=== PATIENT | male | born 1935 | race Caucasian/White ===

== ENCOUNTER 2018-06-26 17:23 | Observation (INO) ==
[2018-06-26] MEDS ORDERED: 0.9 % SODIUM CHLORIDE 1,000 ML IV ONE (17:40)
[2018-06-26 18:22] LABS: Mean Cell Volume 91.3 fL (80.0-100.0); Mean Corpuscular HGB Conc 32.8 g/dL (31.0-36.0); Platelet Count 161 K/mcL (140-440); RBC 4.16 M/mcL (4.50-5.90); Red Cell Distribution Width 19.3 % (11.5-14.5)
[2018-06-26 18:40] LABS: ALT/SGPT 19 U/l (0-40); Albumin 4.3 gm/dL (3.2-5.2); Albumin/Globulin Ratio 1.3 (1.0-2.3); Alkaline Phosphatase 124 U/L (39-117); Blood Urea Nitrogen 15 mg/dl (8-23)
[2018-06-26 18:51] LABS: Anisocytosis 1+ (NONE SEEN); Band Neutrophils % 4 % (0-10); Lymphocytes % 22 % (15-49); Monocytes % (Manual) 10 % (1-12); Ovalocytes 1+ (NONE SEEN); Platelet Estimate NORMAL (NORMAL); RBC Morphology ABNORM (NORMAL); Segmented Neutrophils % 64 % (38-78)
--- NOTE | 2018-06-26 19:10 | XRay Report ---
HISTORY: Shortness of breath and weakness FINDINGS: The heart is moderately enlarged and has increased in size since 02/09/18. In Addition there is congestive heart failure with pulmonary edema. A small left-sided pleural effusion is present. Lung volumes are normal and there is no lobar consolidation. Multiple sternal wires are present. IMPRESSION: Congestive heart failure Interpreted and Authenticated by: Jose Solorio 06/26/18
--- NOTE | 2018-06-26 20:21 | Emergency Department Note ---
Weakness HPI - General Chief complaint: Weakness Stated complaint: weak Time Seen by Provider: 06/26/18 17:34 Source: patient, family Mode of arrival: ambulatory Limitations: no limitations - History of Present Illness HPI Narrative: 83-year-old male presents with increasing weakness over the last 3 days, no appetite, and short of breath with any exertion. He did have chemo yesterday morning. States he gets extremely short of breath with any exertion and is just getting weaker and weaker. States he has not been eating or drinking because he has absolutely no appetite. States he has a chronic cough for many years and no new cough. No sore throat or ear pain. No fever or chills. No abdominal pain. No dysuria or frequency. - Related Data Home Medications Medication Instructions Recorded Confirmed Ranitidine HCl [Heartburn Relief] 75 mg PO DAILY PRN 04/08/16 06/26/18 Tadalafil [Cialis] 5 mg PO DAILY 04/08/16 06/26/18 Tamsulosin HCl [Flomax] 0.4 mg PO HS 04/08/16 06/26/18 metFORMIN HCL [Glucophage] 500 mg PO BID 04/08/16 06/26/18 Previous Rx's Medication Instructions Recorded Accu-Chek 1 each FS ACHS strip 04/10/16 Carvedilol [Coreg] 6.25 mg PO BIDCC #60 tablet 04/10/16 Finasteride [Proscar] 5 mg PO DAILY #30 tablet 04/10/16 Spironolactone [Aldactone] 12.5 mg PO BIDD #30 tablet 04/10/16 Apixaban [Eliquis] 5 mg PO BID #60 tab 08/12/17 Furosemide [Lasix] 20 mg PO QDAY #30 tab 08/12/17 Potassium Chloride 10 meq PO BID #60 capsule.er 08/12/17 HYDROcodone/APAP 5/325MG [[place] 1 tab PO Q4HP PRN #10 tab 12/21/17 5-325Mg] Allergies Allergy/AdvReac Type Severity Reaction Status Date / Time No Known Drug Allergies Allergy Unverified 12/21/17 06:22 Review of Systems All systems ED: reviewed and negative except as stated. Past Medical History - Past Medical History Medical history: Reports: coronary artery disease, DM, hypertension, TIA, other (BPH, prostate cancer, bone cancer) Surgical history ED: Reports: coronary bypass (CABG) - Social History smoking status: Former smoker Alcohol use: Reports: Heavy (in past has quit) Drug use: Reports: none Physical Exam Limitations: no limitations General appearance: alert, other (Speaks 4-5 words at a time with some mild shortness of breath.) Head: atraumatic, normocephalic, normal inspection Eye: Present: normal appearance. Absent: conjunctival injection ENT: normal exam, normal oropharynx, mucous membranes moist, TM's normal bilaterally, normal external ear exam Neck: Present: normal inspection, trachea midline. Absent: tenderness, lymphadenopathy Chest: Present: symmetric chest wall rise Respiratory: Present: other (Lung sounds diminished at the bases bilaterally). Absent: respiratory distress, rales/crackles, accessory muscle use Cardiovascular: Present: tachycardia, normal heart sounds Abdominal: Present: soft, normal bowel sounds. Absent: distention, tenderness, guarding Extremities: Present: normal inspection, normal capillary refill. Absent: pedal edema Neurological: Present: alert, oriented X3 Psychiatric: Present: normal affect, normal mood Skin: Present: warm, dry, intact, normal color. Absent: rash, cyanosis, diaphoresis, erythema Course Course Narrative: At 2049 I did speak with the hospitalist, Dr. Vazquez, who agrees to admit this patient Vital Signs Temperature 97.4 F 06/26/18 17:32 Pulse Rate 125 H 06/26/18 17:32 Respiratory Rate 22 06/26/18 17:32 Blood Pressure 126/78 06/26/18 17:32 Temperature 97.4 F 06/26/18 17:32 Pulse Rate 125 H 06/26/18 17:32 Respiratory Rate 24 H 06/26/18 20:32 Blood Pressure 126/82 06/26/18 20:31 Weakness - Lab Data Lab results reviewed: Yes I reviewed the patient's lab results. Result diagrams: 06/26/18 17:42 06/26/18 17:42 Lab Results 06/26/18 06/26/18 06/26/18 Range/Units 17:42 17:42 17:42 WBC 3.2 L (4.5-11.0) K/mcL RBC 4.16 L (4.50-5.90) M/mcL Hgb 12.4 L (13.5-16.5) g/dL Hct 38.0 L (41.0-55.0) % MCV 91.3 (80.0-100.0) fL MCH 29.9 (26.0-34.0) pg MCHC 32.8 (31.0-36.0) g/dL RDW 19.3 H (11.5-14.5) % Plt Count 161 (140-440) K/mcL MPV 9.0 (7.4-10.4) fL Total Counted 100 Seg Neutrophils % 64 (38-78) % Band Neutrophils % 4 (0-10) % Lymphocytes % 22 (15-49) % Monocytes % (Manual) 10 (1-12) % Platelet Estimate Normal (NORMAL) RBC Morphology Abnorm A (NORMAL) Anisocytosis 1+ A (NONE SEEN) Ovalocytes 1+ A (NONE SEEN) Sodium 134 (133-145) mmol/L Potassium 4.5 (3.3-5.1) mmol/L Chloride 96 (96-108) mmol/L Carbon Dioxide 21 L (22-30) mmol/L Anion Gap 17.0 H (8-16) BUN 15 (8-23) mg/dl Creatinine 0.9 (0.7-1.2) mg/dl GFR Calculation 79 Glucose 180 H (70-105) mg/dL Calcium 9.2 (8.6-10.4) mg/dl Total Bilirubin 1.4 H (0.0-1.0) mg/dL AST 22 (0-37) U/l ALT 19 (0-40) U/l Alkaline Phosphatase 124 H (39-117) U/L Troponin T (0-0.03) ng/ml NT-Pro-B Natriuret Pep 14344.0 H (0-450) pg/ml Total Protein 7.5 (5.9-8.4) gm/dL Albumin 4.3 (3.2-5.2) gm/dL Globulin 3.2 (2.2-3.7) gm/dL Albumin/Globulin Ratio 1.3 (1.0-2.3) 06/26/18 Range/Units 17:46 WBC (4.5-11.0) K/mcL RBC (4.50-5.90) M/mcL Hgb (13.5-16.5) g/dL Hct (41.0-55.0) % MCV (80.0-100.0) fL MCH (26.0-34.0) pg MCHC (31.0-36.0) g/dL RDW (11.5-14.5) % Plt Count (140-440) K/mcL MPV (7.4-10.4) fL Total Counted Seg Neutrophils % (38-78) % Band Neutrophils % (0-10) % Lymphocytes % (15-49) % Monocytes % (Manual) (1-12) % Platelet Estimate (NORMAL) RBC Morphology (NORMAL) Anisocytosis (NONE SEEN) Ovalocytes (NONE SEEN) Sodium (133-145) mmol/L Potassium (3.3-5.1) mmol/L Chloride (96-108) mmol/L Carbon Dioxide (22-30) mmol/L Anion Gap (8-16) BUN (8-23) mg/dl Creatinine (0.7-1.2) mg/dl GFR Calculation Glucose (70-105) mg/dL Calcium (8.6-10.4) mg/dl Total Bilirubin (0.0-1.0) mg/dL AST (0-37) U/l ALT (0-40) U/l Alkaline Phosphatase (39-117) U/L Troponin T < 0.01 (0-0.03) ng/ml NT-Pro-B Natriuret Pep (0-450) pg/ml Total Protein (5.9-8.4) gm/dL Albumin (3.2-5.2) gm/dL Globulin (2.2-3.7) gm/dL Albumin/Globulin Ratio (1.0-2.3) - Radiology Data Radiology results reviewed: Yes I reviewed the patient's radiology results. Disposition Pt seen by [employer] [employer]/PA only: Yes Clinical Impression: SOB (shortness of breath), CHF (congestive heart failure), Generalized weakness, Prostate cancer Disposition: Xfer As Inpt ([facility]) Condition: Fair Referrals: Gonzalo Kwok MD [Primary Care Provider] - Time of Disposition: 20:54
[2018-06-26] MEDS ORDERED: TAMSULOSIN 0.4 MG CAPSULE PO SCH (21:00)
[2018-06-26] MEDS ORDERED: FUROSEMIDE 40 MG/4 ML VIAL IV ONE ×2 (21:28→22:11)
--- NOTE | 2018-06-26 21:37 | Internal Med History&Physical ---
Medical - H&P: HPI Patient information: Note initiated : 06/26/18 at 9:30 pm Service Date, if different from initiated Date: [] Patient: Marcos Zavala 83 y/o M admitted on for weak. Chief Complaint: [] History of present illness: Mr. Zavala is a 83 year old M with history of congestive heart failure, coronary artery disease status post bypass surgery metastatic prostate cancer on chemotherapy presents to the hospital for evaluation of weakness fatigue for the last 3 days. The patient is being followed by oncology at [facility]. Dr Diallo. The patient got his chemotherapy injection of Xofigo 3 days ago, looking at the note it seemed that this was a third dose. Since then the patient has not been feeling well, he notes that he is very tired fatigued and not wanting to get out of bed. He has been in the bed sleeping approximately 20 hours a day. The patient is also has shortness of breath on exertion, and gets tired with minimal activity. He denies any other acute complaints or concerns. He denies any bleeding from any site, any black stools denies any chest pain palpitations di zziness nausea vomiting abdominal pain. He admits to having poor appetite does not feel like eating or drinking much. He presented to his nurse I believe a chemo nurse with the symptoms and he was s ent here to the emergency room because he had elevated heart rate. The patient on presentation was afebrile, tachycardic with a heart rate of 125, normal blood pressure saturating more than 90% on room air. Labs showed a WBC count of 3.2, hemoglobin 12.4 platelets 161, sodium 134 potassium 4.5 bicarbonate 21 creatinine 0.9 glucose 118 troponin 0 0.01, BNP elevated 11,097. Chest x-ray shows CHF small left effusion and cardiomegaly. EKG shows low voltage in the limb leads, atrial fibrillation, QS pattern in V1 V2, nonspecific ST wave changes in the lateral leads The patient has had a cardiac bypass done more than 10 years ago, I have seen the nuclear stress test done for this gentleman last year which showed poor ejection fraction LVEF of 36%, he had infarction on the basilar lateral and i nferior region. He denies any cardiac catheter stenting done afterwards. The patient has a history of prostate cancer, treated by Dr. Diallo at [facility], seems he is presently being treated with Eligard, bicalutamide, and Xgeva. The patient also has been started on Xofigo. During my evaluation, patient was sitting comfortably in the bed, his heart rate was between 90 -110, saturating more than 95% on room air, not tachypneic. He had his family by his bedside, and he was eating a sandwich. He received 1 L saline in the ER, no lasix. All systems: reviewed and no additional remarkable complaints except as stated (as per HPI rest neg) Medical - H&P: PMH Medical history: Medical History TIA (transient ischemic attack) (Acute) HTN (hypertension) (Chronic) DM type 2 (diabetes mellitus, type 2) (Chronic) CAD (coronary artery disease), [place] coronary artery (Acute) Emphysema of lung (Chronic) BPH (benign prostatic hyperplasia) (Chronic) metastatic prostate cancer Family history: reviewed and not pertinent Medical - H&P: Meds Home Medications Medication Instructions Recorded Confirmed Type Ranitidine HCl [Heartburn Relief] 75 mg PO DAILY PRN 04/08/16 06/26/18 History Tadalafil [Cialis] 5 mg PO DAILY 04/08/16 06/26/18 History Tamsulosin HCl [Flomax] 0.4 mg PO HS 04/08/16 06/26/18 History metFORMIN HCL [Glucophage] 500 mg PO BID 04/08/16 06/26/18 History Accu-Chek 1 each FS ACHS strip 04/10/16 06/26/18 Rx Carvedilol [Coreg] 6.25 mg PO BIDCC #60 tablet 04/10/16 06/26/18 Rx Finasteride [Proscar] 5 mg PO DAILY #30 tablet 04/10/16 06/26/18 Rx Spironolactone [Aldactone] 12.5 mg PO BIDD #30 tablet 04/10/16 06/26/18 Rx Apixaban [Eliquis] 5 mg PO BID #60 tab 08/12/17 06/26/18 Rx Furosemide [Lasix] 20 mg PO QDAY #30 tab 08/12/17 06/26/18 Rx Potassium Chloride 10 meq PO BID #60 capsule.er 08/12/17 06/26/18 Rx HYDROcodone/APAP 5/325MG [[place] 1 tab PO Q4HP PRN #10 tab 12/21/17 Rx 5-325Mg] Allergies Allergy/AdvReac Type Severity Reaction Status Date / Time No Known Drug Allergies Allergy Unverified 12/21/17 06:22 Medical - H&P: Exam - Constitutional Vitals: Temp Pulse Resp BP 97.4 F 125 H 28 H 115/81 06/26/18 17:32 06/26/18 17:32 06/26/18 21:01 06/26/18 21:01 Exam: GENERAL: The patient is a well-developed, well-nourished in no apparent distress. Is alert and oriented x3. VITAL SIGNS: Reviewed and as noted elsewhere. HEENT: Head is normocephalic and atraumatic. Extraocular muscles are intact. Pupils are equal, round, and reactive to light. Nares appeared normal. Mouth appears any without lesions. Mucous membranes are moist. NECK: Normal to inspection, Supple, No lymphadenopathy or thyromegaly. LUNGS: Air entry equal on both sides, no wheezing, crackles or rhonchi noted. No accessory muscles of respiration HEART: Regular rate and rhythm normal, S1 and S2 heard, no Gallop, S3 or Rub Noted, No Gross murmur heard. ABDOMEN: Soft, nontender, and nondistended. Positive bowel sounds. No hepatosp lenomegaly was noted. EXTREMITIES: No cyanosis, clubbing, rash, lesions or edema. NEUROLOGIC: Cranial nerves II through XII are grossly intact. Motor and Sensory System Grossly Intact PSYCHIATRIC: Normal affect, Normal Mood. Appropriate Behavior. SKIN: No ulceration or wounds noted, No jaundice, No rash noted. Medical - H&P: Reslt - Labs CBC & Chem 7: 06/26/18 17:42 06/26/18 17:42 Labs: Short CBC 06/26/18 Range/Units 17:42 WBC 3.2 L (4.5-11.0) K/mcL Hgb 12.4 L (13.5-16.5) g/dL Hct 38.0 L (41.0-55.0) % Plt Count 161 (140-440) K/mcL BMP 06/26/18 17:42 Sodium 134 Potassium 4.5 Chloride 96 Carbon Dioxide 21 L BUN 15 Creatinine 0.9 Glucose 180 H Calcium 9.2 Cardiac Enzymes 06/26/18 Range/Units 17:46 Troponin T < 0.01 (0-0.03) ng/ml Liver Function 06/26/18 Range/Units 17:42 Total Bilirubin 1.4 H (0.0-1.0) mg/dL AST 22 (0-37) U/l ALT 19 (0-40) U/l Alkaline Phosphatase 124 H (39-117) U/L Albumin 4.3 (3.2-5.2) gm/dL Medical - H&P: A/P - Narrative A/P Narrative: A/P Fatigue, Decreased appetitie -likely from chemo drugs, anti c ancer drugs, possible use of narcotic. Check TSH, explained to the patient ,he will have to talk to his cancer doctor about his side effects, its unlikely that his cardiac issues are accounting for all his symptoms. CHF exacerbation, Acute systolic -LEVF 36 , IV lasix for now, monitor. Not on oxygen, no pedal edema, no crackles in the lungs, just cxr showing CHF, will see how he responds to lasix Afib- Pt has elevated Heart rate on presentation, but better now. monitor on tele, on anticoagulation DM ssi insulin for glucose control CAD Resume home meds, no chest pain reported trop neg. Ca prostate with bony metastsis, lack of appetitie could also be from his malignancy. DVT on eliquis Full code Cardiac,carb consistent diet. Social History - Tobacco smoking status: Former smoker
[2018-06-26] MEDS ORDERED: NALOXONE HCL 0.4 MG/ML VIAL IV PRN (22:11)
[2018-06-26] MEDS ORDERED: ONDANSETRON 4 MG/2 ML VIAL IV PRN (22:11)
[2018-06-26] MEDS ORDERED: ACETAMINOPHEN 325 MG TABLET PO PRN (22:11)
[2018-06-26] MEDS ORDERED: DEXTROSE 31 GM ORAL.SUSP PO PRN (22:11)
[2018-06-26] MEDS ORDERED: DEXTROSE 50% 50 ML VIAL IV PRN (22:11)
[2018-06-26] MEDS: APIXABAN 5 MG TABLET PO SCH (22:34)
[2018-06-26] MEDS: CARVEDILOL 6.25 MG TABLET PO SCH (22:35)
[2018-06-26] MEDS: oxyCODONE/APAP 5/325MG TABLET PO PRN (22:41)
[2018-06-26] MEDS: PANTOPRAZOLE 40 MG TABLET PO SCH (22:41)
[2018-06-26] MEDS: 0.9 % SODIUM CHLORIDE 10 ML SYRINGE IV SCH (22:44)
[2018-06-26 23:44] LABS: Appearance,Urine CLEAR; Bacteria,Urine 0 /hpf (0); Bilirubin,Urine NEG (NEG); Color,Urine YELLOW; Glucose,Urine (UA) NEGATIVE (NEG); Leukocyte Esterase,Urine NEG /uL (NEG); Mucus,Urine MOD /hpf (0); Protein,Urine 30 mg/dL (NEG); Specific Gravity,Urine 1.018 (1.000-1.035); Urine Blood NEG mg/dL (<0.03); Urine Hyaline Cast 2 /lpf (0-2); Urine RBC < 1 /hpf (0-1); Urine Squamous Epithelial Cell 0 /hpf (0-4); Urine WBC 1 /hpf (0-4)
[2018-06-27] MEDS: oxyCODONE/APAP 5/325MG TABLET PO PRN ×2 (06:25→11:37)
[2018-06-27 07:15] LABS: ALT/SGPT 16 U/l (0-40); Albumin 3.8 gm/dL (3.2-5.2); Albumin/Globulin Ratio 1.5 (1.0-2.3); Alkaline Phosphatase 100 U/L (39-117); Bilirubin,Direct 0.3 mg/dL (0.0-0.3); Blood Urea Nitrogen 14 mg/dl (8-23); Gamma Glutamyl Transpeptidase 45 U/L (8-61); Uric Acid 4.7 mg/dL (2.5-8.0)
[2018-06-27] MEDS: APIXABAN 5 MG TABLET PO SCH (07:56)
[2018-06-27] MEDS: CARVEDILOL 6.25 MG TABLET PO SCH (07:57)
[2018-06-27] MEDS: PANTOPRAZOLE 40 MG TABLET PO SCH (07:58)
[2018-06-27] MEDS: INSULIN LISPRO 1 UNIT/0.01 ML UNIT SQ SCH ×2 (07:59→11:37)
[2018-06-27] MEDS: 0.9 % SODIUM CHLORIDE 10 ML SYRINGE IV SCH (07:59)
[2018-06-27] MEDS ORDERED: SPIRONOLACTONE 25 MG TABLET PO SCH (08:00)
[2018-06-27] MEDS ORDERED: FUROSEMIDE 40 MG/4 ML VIAL IV SCH (08:00)
[2018-06-27] MEDS ORDERED: POTASSIUM CHLORIDE 10 MEQ TABLET PO SCH (08:00)
[2018-06-27 08:21] LABS: Mean Cell Volume 91.3 fL (80.0-100.0); Mean Corpuscular HGB Conc 32.9 g/dL (31.0-36.0); Platelet Count 131 K/mcL (140-440); RBC 3.63 M/mcL (4.50-5.90); Red Cell Distribution Width 18.7 % (11.5-14.5)
[2018-06-27] MEDS ORDERED: FINASTERIDE 5 MG TABLET PO SCH (09:00)
[2018-06-27] MEDS ORDERED: TADALAFIL 5 MG PO SCH (09:00)
[2018-06-27] MEDS ORDERED: NEUTRA PHOS 1 PACKET PO SCH (09:00)
--- NOTE | 2018-06-27 12:15 | Discharge Summary ---
Medical - DS: Prov Patient information: Note initiated : 06/27/18 at 12:12 pm Service Date, if different from initiated Date: [] Patient: Marcos Zavala 83 y/o M admitted on 06/26/18 for weak. Chief Complaint: [] Date of admission: 06/26/18 22:07 Discharge date: 06/27/18 Primary care physician: Gonzalo Kwok Consults: 06/26/18 Consult to Physician [CONS] Stat Comment: Consulting Provider: Handy Vazquez Reason For Exam: Physician to Consult Discharging clinician: Handy Vazquez Medical - DS: Meds - Discharge Medications Prescriptions: Furosemide [Lasix] 40 mg PO DAILY #30 tablet Active and Home Medications: Home Medications Ranitidine HCl [Heartburn Relief] 75 mg PO DAILY PRN 04/08/16 [History Confirmed 06/27/18 Last Taken 06/26/18] Tadalafil [Cialis] 5 mg PO DAILY 04/08/16 [History Confirmed 06/26/18 Last Taken 12/20/17] Tamsulosin HCl [Flomax] 0.4 mg PO HS 04/08/16 [History Confirmed 06/27/18 Last Taken 06/26/18] metFORMIN HCL [Glucophage] 500 mg PO BID 04/08/16 [History Confirmed 06/27/18 Last Taken 06/26/18] Accu-Chek 1 each FS ACHS strip 04/10/16 [Rx Confirmed 06/26/18 Last Taken Unknown] Carvedilol [Coreg] 6.25 mg PO BIDCC #60 tablet 04/10/16 [Rx Confirmed 06/27/18 Last Taken 06/26/18] Finasteride [Proscar] 5 mg PO DAILY #30 tablet 04/10/16 [Rx Confirmed 06/27/18 Last Taken 06/26/18] Spironolactone [Aldactone] 12.5 mg PO BIDD #30 tablet 04/10/16 [Rx Confirmed 06/26/18 Last Taken 12/21/17] Apixaban [Eliquis] 5 mg PO BID #60 tab 08/12/17 [Rx Confirmed 06/27/18 Last Min en 06/26/18] Furosemide [Lasix] 20 mg PO QDAY #30 tab 08/12/17 [Rx Confirmed 06/27/18 Last Taken 06/26/18] Potassium Chloride 10 meq PO BID #60 capsule.er 08/12/17 [Rx Confirmed 06/27/18 Last Taken 06/26/18] HYDROcodone/APAP 5/325MG [Cades 5-325Mg] 1 tab PO Q4HP PRN #10 tab 12/21/17 [Rx Confirmed 06/27/18 Last Taken 06/26/18] Medical - DS: Hosp Hospital course: Mr. Zavala is a 83 year old M with history of congestive heart failure, coronary artery disease status post bypass surgery metastatic prostate cancer on chemotherapy presents to the hospital for evaluation of weakness fatigue for the last 3 days. The patient is being followed by oncology at [facility]. Dr Diallo. The patient got his chemotherapy injection of Xofigo 3 days ago, looking at the note it seemed that this was a third dose. Since then the patient has not been feeling well, he notes that he is very tired fatigued and not wanting to get out of bed. He has been in the bed sleeping approximately 20 hours a day. The patient is also has shortness of breath on exertion, and gets tired with minimal activity. He denies any other acute complaints or concerns. He denies any bleeding from any site, any black stools denies any chest pain palpitations dizziness nausea vomiting abdominal pain. He admits to having poor appetite does not feel like eating or drinking much. He presented to his nurse I believe a chemo nurse with the symptoms and he was sent here to the emergency room because he had elevated heart rate. The patient on presentation was afebrile, tachycardic with a heart rate of 125, normal blood pressure saturating more than 90% on room air. Labs showed a WBC count of 3.2, hemoglobin 12.4 platelets 161, sodium 134 potassium 4.5 bicarbonate 21 creatinine 0.9 glucose 118 troponin 0 0.01, BNP elevated 11,097. Chest x-ray shows CHF small left effusion and cardiomegaly. EKG shows low voltage in the limb leads, atrial fibrillation, QS pattern in V1 V2, nonspecific ST wave changes in the lateral leads The patient has had a cardiac bypass done more than 10 years ago, I have seen the nuclear stress test done for this gentleman last year which showed poor ejection fraction LVEF of 36%, he had infarction on the basilar lateral and inferior region. He denies any cardiac catheter stenting done afterwards. The patient has a history of prostate cancer, treated by Dr. Diallo at [facility], seems he is presently being treated with Eligard, bicalutamide, and Xgeva. The patient also has been started on Xofigo. During my evaluation, patient was sitting comfortably in the bed, his heart rate was between 90 -110, saturating more than 95% on room air, not tachypneic. He had his family by his bedside, and he was eating a sandwich. He received 1 L saline in the ER, no lasix. 06/27 Patient seen examined, doing well, able to tolerate po diet well, but also has lack of appetite. Diuresed 1460 ml since last night. Additional dose lasix given in AM Pt stable for discharge home, increase dose of lasix to 40mg daily no change in other chronic home medications Patient to follow up with his oncologist to discuss his medications/ if cancer meds or cancer it self is responsible for his weakless/ lack of appetitie. Discharge diagnosis: CHF, Poor appetite - Time Spent with Patient Total time spent providing and/or coordinating discharge services: Greater than 30 minutes Medical - DS: Exam - Constitutional Vitals: Vital Signs Temp Pulse Pulse Resp BP BP Pulse Ox 06/27/18 11:43 96.4 F L 96 H 22 111/58 96 06/27/18 07:57 96.1 F L 99 H 22 126/62 91 06/27/18 04:45 97.5 F 100 H 20 134/85 96 06/26/18 22:15 97.3 F 101 H 22 130/79 94 06/26/18 22:05 21 06/26/18 22:01 138/74 06/26/18 21:46 21 134/80 06/26/18 21:31 22 131/110 06/26/18 21:16 23 H 154/94 06/26/18 21:01 28 H 115/81 06/26/18 20:46 17 114/60 06/26/18 20:32 24 H 06/26/18 20:31 22 126/82 06/26/18 20:16 13 133/77 06/26/18 20:01 18 127/81 06/26/18 19:45 18 120/103 06/26/18 19:31 25 H 123/67 06/26/18 19:16 16 129/81 06/26/18 19:01 18 110/76 06/26/18 18:46 21 116/72 06/26/18 18:31 24 H 121/80 06/26/18 18:16 12 121/77 06/26/18 18:01 23 H 120/74 06/26/18 17:46 17 129/88 06/26/18 17:39 16 126/78 06/26/18 17:32 97.4 F 125 H 22 126/78 Intake and Output 06/26/18 06/27/18 06/27/18 21:59 05:59 13:59 Intake Total 300 240 Output Total 1200 800 Balance -900 -560 Intake: Oral 300 240 Output: Void Amount 1200 800 Other: Meal Breakfast Percent of Meal Consumed 100% Feeding Ability Independent Urine Appearance Clear Clear Urine Color Straw Pale Urine Odor Normal Normal Weight 187 lb 187 lb Additional comments: Constitutional; Afebrile, cooperative, alert, not in distress. Eyes- No icterus, , No periorbital swelling Ears- Ext ear normal, hearing normal to conversation. Neck- Midline trachea, supple Respiratory system: Air Entry equal on both sides, No crackles or wheezing, no rhonchi. CVS- Rate rhythm regular, S1,S2 heard, no gallop, no rub. Abdomen- Soft nontender abdomen, no organomegaly, no tenderness, no guarding or rigidity, TRIM SAWYER- AOOx3, moving all extremities, no gross focal deficit noted. Medical - DS: Data Labs on day of discharge: Labs from last 24 hours 06/27/18 06/27/18 06/27/18 04:26 04:26 04:26 WBC 2.7 L RBC 3.63 L Hgb 10.9 L Hct 33.1 L MCV 91.3 MCH 30.0 MCHC 32.9 RDW 18.7 H Plt Count 131 L MPV 8.8 Total Counted Pending Seg Neutrophils % Band Neutrophils % Pending Lymphocytes % Monocytes % (Manual) Platelet Estimate Pending RBC Morphology Pending Anisocytosis Ovalocytes Sodium 133 Potassium 4.2 Chloride 97 Carbon Dioxide 22 Anion Gap 14.0 BUN 14 Creatinine 0.8 GFR Calculation 83 Glucose 152 H Uric Acid 4.7 Calcium 8.5 L Phosphorus 2.2 L Magnesium 1.9 Total Bilirubin 1.2 H Direct Bilirubin 0.3 GGT 45 AST 18 ALT 16 Alkaline Phosphatase 100 Lactate Dehydrogenase 202 Troponin T NT-Pro-B Natriuret Pep Total Protein 6.4 Albumin 3.8 Globulin 2.6 Albumin/Globulin Ratio 1.5 Triglycerides 96 TSH Urine Color Urine Appearance Urine pH Ur Specific [place] Urine Protein Urine Glucose (UA) Urine Ketones Urine Occult Blood Urine Nitrate Urine Bilirubin Urine Urobilinogen Ur Leukocyte Esterase Urine RBC Urine WBC Ur Squamous Epith Cells Urine Bacteria Hyaline Casts Urine Mucus Ur Culture Indicated? 06/26/18 06/26/18 06/26/18 23:15 17:46 17:42 WBC RBC Hgb Hct MCV MCH MCHC RDW Plt Count MPV Total Counted Seg Neutrophils % Band Neutrophils % Lymphocytes % Monocytes % (Manual) Platelet Estimate RBC Morphology Anisocytosis Ovalocytes Sodium Potassium Chloride Carbon Dioxide Anion Gap BUN Creatinine GFR Calculation Glucose Uric Acid Calcium Phosphorus Magnesium Total Bilirubin Direct Bilirubin GGT AST ALT Alkaline Phosphatase Lactate Dehydrogenase Troponin T < 0.01 NT-Pro-B Natriuret Pep Total Protein Albumin Globulin Albumin/Globulin Ratio Triglycerides TSH 1.09 Urine Color Yellow Urine Appearance Clear Urine pH 5.0 Ur Specific [place] 1.018 Urine Protein 30 A Urine Glucose (UA) Negative Urine Ketones Neg Urine Occult Blood Neg Urine Nitrate Neg Urine Bilirubin Neg Urine Urobilinogen 4.0 A Ur Leukocyte Esterase Neg Urine RBC < 1 Urine WBC 1 Ur Squamous Epith Cells 0 Urine Bacteria 0 Hyaline Casts 2 Urine Mucus Mod Ur Culture Indicated? No 06/26/18 06/26/18 06/26/18 17:42 17:42 17:42 WBC 3.2 L RBC 4.16 L Hgb 12.4 L Hct 38.0 L MCV 91.3 MCH 29.9 MCHC 32.8 RDW 19.3 H Plt Count 161 MPV 9.0 Total Counted 100 Seg Neutrophils % 64 Band Neutrophils % 4 Lymphocytes % 22 Monocytes % (Manual) 10 Platelet Estimate Normal RBC Morphology Abnorm A Anisocytosis 1+ A Ovalocytes 1+ A Sodium 134 Potassium 4.5 Chloride 96 Carbon Dioxide 21 L Anion Gap 17.0 H BUN 15 Creatinine 0.9 GFR Calculation 79 Glucose 180 H Uric Acid Calcium 9.2 Phosphorus Magnesium Total Bilirubin 1.4 H Direct Bilirubin GGT AST 22 ALT 19 Alkaline Phosphatase 124 H Lactate Dehydrogenase Troponin T NT-Pro-B Natriuret Pep 90503.0 H Total Protein 7.5 Albumin 4.3 Globulin 3.2 Albumin/Globulin Ratio 1.3 Triglycerides TSH Urine Color Urine Appearance Urine pH Ur Specific [place] Urine Protein Urine Glucose (UA) Urine Ketones Urine Occult Blood Urine Nitrate Urine Bilirubin Urine Urobilinogen Ur Leukocyte Esterase Urine RBC Urine WBC Ur Squamous Epith Cells Urine Bacteria Hyaline Casts Urine Mucus Ur Culture Indicated? Medical - DS: A/P - Patient/Caregiver Discharge Instructions Activity: increase activity as tolerated Diet: Low Sodium (2gm), Cardiac Additional Instructions: Please follow-up with your oncologist with regards to lack of appetite. He is following a low-salt diet Restrict your fluid intake to 1500 mL in 24 hours, this is around 51 fluid ounces. I have increased the dose of furosemide from 20 mg to 40 mg. Follow-up with your PCP in 1-2 weeks. Follow-up with your oncologist as previously scheduled. I have not made any changes to your chronic home medications except increase the dose of furosemide. If you have worsening condition, chest pain shortness of breath or any other acute concerns please go to the emergency room for further evaluation - Follow up Plan Follow up with: Gonzalo Kwok MD [Primary Care Provider] - Disposition: Home, Self-Care Prognosis: Fair Rehab Potential: Fair I certify that the patient requires SNF services: No Overall status at discharge: patient is progressing back to baseline Medical - DS: Qual - VTE Deep Vein Thrombosis/Pulmonary Embolism Present on Admission: No
[2018-07-18 10:12] LABS: Lymphocytes % 22; Segmented Neutrophils % 64
[2018-07-18 10:13] LABS: Eosinophils % (Manual) 1; Monocytes % (Manual) 13; Platelet Estimate DECREASED; RBC Morphology ABNORMAL
[2018-07-18 10:14] LABS: Anisocytosis 1+; Ovalocytes FEW
== END 2018-06-27 14:30 | disposition home or self-care (01) ==
LOC: ED 17:23 → MEDSUR 22:07 → INTOOBSV 22:07
PROVIDERS: ADMIT Internal Medicine; ATTEND Internal Medicine